=== PATIENT | female | born 1990 | race Caucasian/White ===

== ENCOUNTER → 2016-10-22 | Outpatient (CLI) | payer BC ==
[2016-10-22 18:54] LABS: BASO % 0.5 %; BASO ABS # 0.04 K/uL (0-0.2); COMPLETE YES; EOS % 1.7 %; HEMATOCRIT 38.1 % (37-47); IG% 0.1 %; LYMPH % 43.1 %; LYMPH ABS # 3.21 K/uL (1.2-3.4); MEAN CELL VOLUME 89.9 fL (80-100); MEAN CORPUSCULAR HEMOGLOBIN 30.2 pg (25-34); MEAN CORPUSCULAR HGB CONC 33.6 g/dl (32-36); MONO % 8.2 %; NEUT % 46.4 %; PLATELET COUNT 315 K/uL (130-400); RED BLOOD COUNT 4.24 M/uL (4.2-5.4); WHITE BLOOD COUNT 7.44 K/uL (4.8-10.8)
== END | disposition home or self-care (01) ==
LOC: C.LABMFLN 11:38
PROVIDERS: ATTEND Family Medicine
DX: D72.829 Elevated white blood cell count, unspecified (principal)

== ENCOUNTER → 2017-07-24 | Outpatient (CLI) | payer OTHER | END | disposition home or self-care (01) | LOC: C.PAPS 13:50 | PROVIDERS: ATTEND Physician Assistant | DX: Z12.4 Encounter for screening for malignant neoplasm of cervix (principal) ==

== ENCOUNTER 2023-01-11 02:11 | Inpatient (IN) ==
[2023-01-11] MEDS ORDERED: OXYTOCIN 30 UNITS/500 ML BAG IV PRN ×3 (03:13→16:06)
[2023-01-11] MEDS ORDERED: LIDOCAINE 1% LOCAL 20 ML VIAL INFIL PRN (03:13)
[2023-01-11 03:58] LABS: Hematocrit (blood only) 38.8 % (37.0-47.0); Hemoglobin 13.5 g/dl (12.0-16.0); Mean Corpuscular Hgb Conc 34.8 g/dL (32.0-36.0); Mean Corpuscular Volume 91.9 fL (80.0-100.0); Mean Platelet Volume 10.8 fL (9.4-12.4); Platelet Count 241 K/uL (130-400); RDW Coefficient of Variation 11.9 % (11.5-14.5); RDW Standard Deviation 39.6 fL (36.4-46.3); Red Blood Count 4.22 M/uL (4.20-5.40); White Blood Count 9.89 K/ul (4.8-10.8)
--- NOTE | 2023-01-11 06:22 | Labor Progress Brief Note ---
Date of Service January 11, 2023 Subjective Admitted with SROM and onset of labor just starting as she arrived at hospital a few hours ago. Much more painful with contractions, now requesting epidural. Assessment & Plan (1) Normal labor: Plan: SROM, now labor, requesting epidural. Admission and Anticipated Discharge Date Admission Date: January 11, 2023 Physical Exam Genitourinary: Per OPAL Saxena: Exam has changed from 1cm on admission to 2/90% now. LOF clear. Amnisure was positive on arrival. FHT Cat 1 [place] Q2-5 irreg Results & Data Vital Signs (Past 12 Hours) Vital Signs Temp Pulse Resp BP 01/11/23 03:50 98.6 F 88 20 135/68 Coding Level of Care Code None Diagnoses Normal labor O80; Z37.9
[2023-01-11] MEDS: LACTATED RINGER'S 1,000 ML IV PRN ×3 (06:41→15:55)
[2023-01-11] MEDS ORDERED: fentaNYL citrate PF 100 MCG/2 ML VIAL ONE (07:06)
[2023-01-11] MEDS ORDERED: ePHEDrine sulfate 50 MG/ML AMP ONE (07:06)
[2023-01-11] MEDS ORDERED: BUPIVACAINE 0.25% PF 30 ML VIAL ONE (07:06)
[2023-01-11] MEDS ORDERED: SODIUM CHLORIDE 0.9% PF INJ 10 ML VIAL ONE (07:06)
[2023-01-11] MEDS ORDERED: LIDOCAINE 2%/EPINEPHRINE 1:200,000 20 ML PF ONE (07:06)
[2023-01-11] MEDS ORDERED: fentaNYL 2MCG/ML ROPIVACAINE 1.25MG/ML 100 ML BAG EPI ONE (07:07)
--- NOTE | 2023-01-11 07:23 | Anesthesiology Consultation ---
Date of Service January 11, 2023 Assessment & Plan Chart Review Chart Review: Acceptable Risk for Surgery and Patient NOT seen in Pre Admission Testing Consults Requested none ASA ASA2 Proposed Anesthesia Anesthesia Type: Labor Epidural and CSE History Height/Weight Height: 5 ft 5 in Weight: 86.046 kg Allergies Allergy/AdvReac Type Severity Reaction Status Date / Time No Known Drug Allergies Allergy Verified 01/08/23 15:55 Medications Home Medications Medication Instructions Recorded Confirmed Last Taken albuterol sulfate 90 mcg/actuation 2 inhalation .INHALE 2 PUFFS Every 10/24/19 01/08/23 Unknown aerosol inhaler 4 hours PRN prenat.vits,bg,yay-[id number]-[id number] 1 tab PO DAILY 11/08/21 01/08/23 Unknown Active Medications Generic Name Dose Route Start Last Admin Trade Name Freq PRN Reason Stop Dose Admin Lactated Ringer's 1,000 mls @ 125 mls/hr 01/11/23 03:13 01/11/23 06:41 Lr IV 01/13/23 03:12 999 mls/hr .Q8H PRN Administration L&D Protocol Protocol Past Medical History Medical History Adjustment disorder with depressed mood Chlamydia trachomatis infection PCOS (polycystic ovarian syndrome) Exercise / Class Metabolic Activity II 4-5 Yardwork/Stairs/Walk up hill Past Family History Family History Father Hypertension Dyslipidemia Mother Hypothyroidism Grandfather (Maternal) Colorectal cancer Other Ovarian cancer Denies family history of Breast cancer Past Surgical History Surgical History H/O oral surgery S/P tonsillectomy Past Anesthesia History No Hx of Anesthesia Complications and No Family Hx of Anesthesia Complications History of PONV No Hx of PONV and No Hx of Motion Sickness Social History Smoking Status: Never smoker Hx Alcohol Use: No Hx Substance Use: No Physical Exam Vital Signs Last Vital Signs Temp 37.0 C 01/11/23 03:50 Pulse 99 H 01/11/23 07:20 Resp 20 01/11/23 03:50 BP 137/79 01/11/23 07:15 Pulse Ox 100 01/11/23 07:20 Testing Laboratory Results 01/11/23 03:40
[2023-01-11] MEDS ORDERED: NALOXONE HCL 0.4 MG/1 ML VIAL/CARP IV PRN (08:07)
[2023-01-11] MEDS ORDERED: ONDANSETRON INJ 2 MG/ML 2 ML VIAL IV PRN (08:07)
[2023-01-11] MEDS ORDERED: PROMETHAZINE HCL 25 MG in SODIUM CHLORIDE 0.9% 50 ML IV PRN (08:07)
[2023-01-11] MEDS ORDERED: NALBUPHINE HCL INJ 10 MG/ML AMP IV PRN (08:07)
[2023-01-11] MEDS ORDERED: NALOXONE HCL 1 MG in SODIUM CHLORIDE 0.9% 1000ML 1,000 ML IV PRN (08:07)
[2023-01-11] MEDS ORDERED: fentaNYL 2MCG/ML ROPIVACAINE 1.25MG/ML 100 ML BAG EPI PRN (08:07)
[2023-01-11] MEDS ORDERED: diphenhydrAMINE 50 MG/ML VIAL IV PRN (08:07)
[2023-01-11] MEDS ORDERED: ePHEDrine sulfate 50 MG/ML AMP IV PRN (08:07)
--- NOTE | 2023-01-11 08:57 | Labor Progress Brief Note ---
Date of Service January 11, 2023 Subjective comfortable w/ epidural Assessment & Plan (1) Normal labor: Plan: 32 yo G1 at 40 2/7 wga admitted w/ srom/labor VSS Fetus cat 2 after epidural but reassuring Labor - ctx seem to have spaced out a little, SVE minimal change. Discussed pit and pt amenable GBS neg epidural in place Admission and Anticipated Discharge Date Admission Date: January 11, 2023 Physical Exam Genitourinary: Manual OB Exam: + cervical dilation (2-3), + cervical effacement 70% and + station -2 OB Exam Monitor Tracing: + external FHT monitor used (q5-7), + external uterine monitor used and + category II (130/mod/+accel/intermit early/variables after epidural) Results & Data Vital Signs (Past 12 Hours) Vital Signs Temp Pulse Resp BP Pulse Ox 01/11/23 08:50 100 01/11/23 08:50 75 01/11/23 08:51 90 92 01/11/23 08:50 85 112/58 L 01/11/23 08:45 71 96 01/11/23 08:40 90 99 01/11/23 08:36 75 112/53 L 01/11/23 08:35 79 98 01/11/23 08:30 81 99 01/11/23 08:25 76 97 01/11/23 08:20 78 98 01/11/23 08:19 81 110/51 L 01/11/23 08:15 82 98 01/11/23 08:11 81 101/56 L 01/11/23 08:10 86 99 01/11/23 08:09 83 104/54 L 01/11/23 08:07 77 110/56 L 01/11/23 08:05 94 H 114/56 L 99 01/11/23 08:03 81 107/51 L 01/11/23 08:02 78 112/55 L 01/11/23 08:00 87 100 01/11/23 07:55 87 99 01/11/23 07:50 97 H 99 01/11/23 07:45 97 H 99 01/11/23 07:40 93 H 100 01/11/23 07:35 99 H 99 01/11/23 07:30 101 H 100 01/11/23 07:16 20 01/11/23 07:16 98.2 F 20 01/11/23 07:25 90 99 01/11/23 07:20 99 H 100 01/11/23 07:15 100 01/11/23 07:15 93 H 01/11/23 07:15 90 137/79 01/11/23 03:50 98.6 F 88 20 135/68 Coding Level of Care Code None Diagnoses Normal labor O80; Z37.9
[2023-01-11] MEDS ORDERED: ceFAZolin 2000MG 2,000 MG/15 ML SYR IV STA (15:56)
--- NOTE | 2023-01-11 16:02 | Delivery Summary ---
Vaginal Delivery Summary Date of Service January 11, 2023 Vaginal Delivery Summary and 2nd Degree LAC PREOPERATIVE DIAGNOSIS: 1. Single intrauterine at 40 2/7 wga 2. SROM 3. Labor POSTOPERATIVE DIAGNOSIS: 1. Single intrauterine at 40 2/7 wga 2. SROM 3. Labor 4. Delivered PROCEDURE: 1. Normal spontaneous vaginal delivery. 2. Manual extraction of placenta SURGEON: Sandra Woods MD ANESTHESIA: Epidural. ESTIMATED BLOOD LOSS: 300 mL FLUIDS: Continuous LR. URINE OUTPUT: None. COMPLICATIONS: None. CONDITION: Stable. INDICATIONS: 32 yo G1 at 40 2/7 wga presented early this morning with SROM and contractions. She received an epidural for pain control. Cervix was noted to not have progressed significantly following epidural so pitocin was initiated. She then progressed to complete and desired to push. FINDINGS: A viable male infant, weight pending with Apgars of 9 and 9 at 1 and 5 minutes respectively. SPECIMEN: Cord blood, placenta OPERATIVE REPORT: The patient progressed to 10 cm, 100% effaced and +2 station, pushed over intact perineum with anesthesia to deliver a viable male infant, weight and Apgars as above. Head of delivered in MARY LOU position. No nuchal cord was present but hand was noted to be compound presentation. Body and shoulders were delivered without difficulty. was delivered to maternal abdomen and nursing staff. Delayed cord clamping was performed for 60 seconds. Cord was clamped and cut. Cord blood was obtained. Gentle traction was placed on placenta however cord easily avulsed and so manual extraction was performed and placenta was removed intact. Additional sweep of the uterus did not identify retained products. Inspection of placenta revealed it to appear intact. IV oxytocin and fundal massage were given for excellent hemostasis. Vagina, cervix, and perineum, were inspected. A second degree laceration was noted and repaired using 3-0 vicryl in the usual fashion. Bilateral labial abrasions were noted but hemostatic so not needed to be repaired. Ancef was ordered x 24 hrs due to manual extraction. Sponge and needle counts correct x2. No sponges were left behind. Mother and stable in immediate period. [facility] [place] Vaginal Delivery Charge Vaginal Delivery Codes: 31121 global code for the antepartum, delivery, and post- Delivery Type Details: and 2nd Degree LAC
[2023-01-11] MEDS ORDERED: HYDROCORTISONE ACETATE 25 MG SUPP PR PRN (16:06)
[2023-01-11] MEDS ORDERED: ACETAMINOPHEN 325 MG TAB PO PRN (16:06)
[2023-01-11] MEDS ORDERED: DIPHTHERIA/TETANUS/PERTUSSIS 0.5mL SYR/VIAL (Age 7+yrs) IM ONE (16:06)
[2023-01-11] MEDS ORDERED: BENZOCAINE 20% AER SPR 82.5 GM CAN EXT PRN (16:06)
[2023-01-11] MEDS ORDERED: bisacodyL 10 MG SUPP PR PRN (16:06)
[2023-01-11] MEDS ORDERED: MEASLES, MUMPS & RUBELLA VIRUS VIAL SQ ONE (16:06)
--- NOTE | 2023-01-11 16:56 | Anesthesia Procedure Note ---
Date of Service January 11, 2023 Anesthesia Post Epidural Note Vital Signs Vital Signs: Temp Pulse Resp BP Pulse Ox 36.9 C 123 H 20 116/79 100 01/11/23 15:05 01/11/23 16:34 01/11/23 15:05 01/11/23 16:49 01/11/23 15:50 Notes Mental Status: alert / awake / arousable Nausea / Vomiting: adequately controlled Pain: adequately controlled Airway Patency, RR, SpO2: stable & adequate BP & HR: stable & adequate Hydration State: stable & adequate Neuraxial Anesthesia: was administered and sensory block is resolving Anesthetic Complications: no major complications apparent Epidural: Removed without complications and With tip intact
[2023-01-11] MEDS: IBUPROFEN 600 MG TAB PO PRN ×2 (17:14→21:01)
[2023-01-11] MEDS: DOCUSATE SODIUM 100 MG CAP PO SCH (21:01)
[2023-01-12] MEDS: ceFAZolin 2000MG 2,000 MG/15 ML SYR IV SCH ×2 (00:06→08:31)
[2023-01-12] MEDS: IBUPROFEN 600 MG TAB PO PRN ×4 (02:35→19:40)
--- NOTE | 2023-01-12 06:59 | Obstetrical Progress Note ---
Date of Service January 12, 2023 Assessment & Plan (1) Encounter for care and examination after delivery: 32 yo PP1 from , doing well -Meeting all pp milestones -A+/rubella equiv/, mmr ordered -f/u 6 weeks for appt, continue routine pp care. Ancef ordered x 24 hrs for manual extraction Subjective Ambulation: ambulating normally Voiding: no voiding problems Passing Gas:: Yes Diet Tolerance:: regular diet Lochia:: Moderate Feeding Type:: breast feeding Pain well managed with medication Review of Systems Denies fevers, chills, n/v, BORJA, CP, SOB Physical Exam Constitutional WD/WN, vitals as above no acute distress Respiratory normal respiratory effort, lungs clear to auscultation Cardiovascular RRR, no murmur, no edema Gastrointestinal (Abdomen) Percussion/Palpation: abdomen soft; abdomen nontender fundus firm at umbilicus and NT Musculoskeletal BLE symmetric, nonerythematous, nontender Results & Data Vital Signs (Past 12 Hours) Vital Signs Temp Pulse Resp BP Pulse Ox O2 Del Method 01/12/23 02:36 97.9 F 80 18 113/75 97 Room Air 01/11/23 22:59 97.7 F 85 18 109/71 97 Room Air
[2023-01-12] MEDS: DOCUSATE SODIUM 100 MG CAP PO SCH ×2 (08:31→19:40)
[2023-01-12] MEDS: FERROUS SULFATE 325 MG TAB PO SCH (08:31)
[2023-01-12] MEDS: PRENATAL VITAMIN 1 TAB PO SCH (08:31)
[2023-01-12] MEDS ORDERED: bisacodyL 5 MG TABEC PO SCH (20:00)
[2023-01-13] MEDS: IBUPROFEN 600 MG TAB PO PRN ×2 (05:19→09:15)
--- NOTE | 2023-01-13 05:43 | Obstetrical Progress Note ---
Date of Service January 13, 2023 Assessment & Plan (1) Encounter for care and examination after delivery: Plan: Winter is a 32 y/o female who is PPD #2 following delivery at 40 2/7 weeks -Meeting all milestones -Vitals checked and WNL, Hemoglobin stable -A+/GBS negative/Rubella equivocal -Follow up in 6 weeks for appointment -Continue routine care -Plan for d/c today (2) Normal labor: (3) Supervision of normal intrauterine in primigravida: Admission and Anticipated Discharge Date Admission Date: January 11, 2023 Supervising Physician Co-Signing Physician Notes Resident Physician Supervision Note: I interviewed and examined the patient. Discussed with Dr. Bradshaw and agree with findings and plan as documented in the note. Any exceptions or clarifications are listed here: PP2 s/p , doing well. VSS, exam benign and wnl. Stable for d/c home today Documented By: Sandra Woods MD Subjective Winter is a 32 y/o female who is PPD #2 following delivery at 40 2/7 weeks. She reports feeling well overall this morning. Notes abdominal cramping but pain well managed on analgesics. Voiding without issue. Tolerating meals overnight and able to ambulate some. Has some persistent lochia with some improvement this morning. Currently breast feeding. Review of Systems Constitutional: no fever, no chills and no sweats Respiratory: no cough, no dyspnea and no wheezing Cardiovascular: no chest pain, no palpitations and no calf pain Genitourinary: no dysuria Neurologic: no headache(s) Physical Exam Constitutional: WD/WN, vitals as above no acute distress Respiratory: no respiratory distress Auscultation: lungs clear to auscultation bilaterally; no rales, no rhonchi and no wheezes Cardiovascular: RRR, no murmur, no edema Extremities: no calf tenderness and no edema Negative Rowan's sign bilaterally. Gastrointestinal (Abdomen): Inspection/Auscultation: normal bowel sounds Genitourinary: Uterine fundus firm, palpable below the umbilicus. Results & Data Vital Signs (Past 12 Hours) Vital Signs Temp Pulse Resp BP Pulse Ox O2 Del Method 01/12/23 23:00 36.6 C 74 18 108/57 L 97 Room Air 01/12/23 19:30 36.7 C 87 18 109/65 99 Room Air Resident Activity Tracking Resident Involvement: Resident Care Provided Care Provided: OB Delivery
[2023-01-13] MEDS: FERROUS SULFATE 325 MG TAB PO SCH (08:33)
[2023-01-13] MEDS: DOCUSATE SODIUM 100 MG CAP PO SCH (08:33)
[2023-01-13] MEDS: PRENATAL VITAMIN 1 TAB PO SCH (08:33)
== END 2023-01-13 14:49 | disposition home or self-care (01) | DRG 807 ==
LOC: OPB 02:11 → 4S1 02:13 → 4E2 18:45

== ENCOUNTER 2024-11-28 21:06 | Inpatient (IN) ==
[2024-11-29] MEDS: LACTATED RINGER'S 1,000 ML IV PRN (00:45)
[2024-11-29] MEDS ORDERED: LIDOCAINE 1% LOCAL 20 ML VIAL INFIL PRN (00:46)
[2024-11-29] MEDS ORDERED: ePHEDrine sulfate 50 MG/ML AMP ONE (01:16)
[2024-11-29] MEDS ORDERED: ROPIVACAINE 0.5% PF 5 MG/ML 20 ML VIAL EPI PRN (01:29)
[2024-11-29] MEDS ORDERED: diphenhydrAMINE 50 MG/ML VIAL IV PRN (01:29)
[2024-11-29] MEDS ORDERED: BUPIVACAINE 0.25% PF 30 ML VIAL EPI PRN (01:29)
[2024-11-29] MEDS ORDERED: NALOXONE HCL 0.4 MG/1 ML VIAL/CARP IV PRN (01:29)
[2024-11-29] MEDS ORDERED: NALOXONE HCL 1 MG in SODIUM CHLORIDE 0.9% 1,000 ML IV PRN (01:29)
[2024-11-29] MEDS ORDERED: fentANYL 2 MCG/ML BUPIVacaine 0.125%-NSS 100ML BAG EPI PRN (01:29)
[2024-11-29] MEDS ORDERED: LIDOCAINE 2% MPF LOCAL 5 ML VIAL EPI PRN (01:29)
[2024-11-29] MEDS ORDERED: ePHEDrine sulfate 50 MG/ML AMP IV PRN (01:29)
[2024-11-29] MEDS ORDERED: NALBUPHINE HCL INJ 10 MG/ML AMP IV PRN (01:29)
[2024-11-29] MEDS ORDERED: fentaNYL citrate PF 100 MCG/2 ML VIAL EPI PRN (01:29)
[2024-11-29] MEDS ORDERED: ONDANSETRON INJ 2 MG/ML 2 ML VIAL IV PRN (01:29)
[2024-11-29] MEDS ORDERED: SODIUM CHLORIDE 0.9% PF INJ 10 ML VIAL EPI PRN (01:29)
[2024-11-29 01:30] LABS: Hematocrit (blood only) 36.1 % (37.0-47.0); Hemoglobin 12.2 g/dl (12.0-16.0); Mean Corpuscular Hemoglobin 30.8 pg (25.0-34.0); Mean Corpuscular Hgb Conc 33.8 g/dL (32.0-36.0); Mean Corpuscular Volume 91.2 fL (80.0-100.0); Mean Platelet Volume 10.5 fL (9.4-12.4); Platelet Count 238 K/uL (130-400); RDW Coefficient of Variation 12.2 % (11.5-14.5); RDW Standard Deviation 40.4 fL (36.4-46.3); Red Blood Count 3.96 M/uL (4.20-5.40); White Blood Count 10.99 K/ul (4.8-10.8)
--- NOTE | 2024-11-29 01:32 | Anesthesiology Consultation ---
Date of Service November 29, 2024 Assessment & Plan (1) Encounter for pre-operative examination: Chart Review Chart Review: Patient NOT seen in Pre Admission Testing and Acceptable Risk for Labor Epidural Consults Requested none History Height/Weight Height: 5 ft 5 in Weight: 85.729 kg Allergies Allergy/AdvReac Type Severity Reaction Status Date / Time No Known Drug Allergies Allergy Verified 11/24/24 14:51 Medications Home Medications Medication Instructions Recorded Confirmed Last Taken albuterol sulfate 90 mcg/actuation 2 inhalation .INHALE 2 PUFFS Every 10/24/19 11/24/24 Unknown aerosol inhaler 4 hours PRN prenat.vits,bg,ede-gobb-bfxcp 1 tab PO DAILY 11/08/21 11/24/24 11/27/24 21:00 acetaminophen 325 mg tablet 650 mg PO Q6H PRN Pain, Mild 11/28/24 Unknown Active Medications Generic Name Dose Route Start Last Admin Trade Name Freq PRN Reason Stop Dose Admin Lactated Ringer's 1,000 mls @ 125 mls/hr 11/29/24 00:46 11/29/24 01:20 Lr IV 11/30/24 00:45 125 mls/hr .Q8H PRN Infusion L&D Protocol Protocol Past Medical History Medical History (Updated 11/29/24 @ 01:32 by Daniel Nuno MD) Encounter for pre-operative examination History of chicken pox Asthma Allergic rhinitis History of abnormal cervical Pap smear 2016, (-) colpo Dysmenorrhea Adjustment disorder with depressed mood PCOS (polycystic ovarian syndrome) Chlamydia trachomatis infection Exercise / Class Metabolic Activity II 4-5 Yardwork/Stairs/Walk up hill Past Family History Family History Father Hypertension Dyslipidemia Dementia Mother Hypothyroidism Grandfather (Maternal) Colorectal cancer Other Ovarian cancer Denies family history of Breast cancer Past Surgical History Surgical History S/P tonsillectomy H/O oral surgery Past Anesthesia History No Hx of Anesthesia Complications and No Family Hx of Anesthesia Complications Social History Smoking Status: Never smoker Do You Dip or Chew Tobacco: No Hx Alcohol Use: No Hx Substance Use: No Physical Exam Vital Signs Last Vital Signs Temp 36.8 C 11/28/24 21:45 Pulse 82 11/29/24 01:45 Resp 16 11/28/24 21:45 BP 134/74 11/29/24 01:36 Pulse Ox 99 11/29/24 01:45 Testing Laboratory Results 11/29/24 01:06
[2024-11-29] MEDS: SODIUM CHLORIDE 0.9% PF INJ 10 ML VIAL EPI STA (01:52)
[2024-11-29] MEDS: BUPIVACAINE 0.25% PF 30 ML VIAL EPI STA (01:52)
[2024-11-29] MEDS: BUPIVACAINE 0.25% PF 30 ML VIAL ONE (01:52)
[2024-11-29] MEDS: LIDOCAINE 2%/EPINEPHRINE 1:200,000 20 ML PF ONE (01:52)
[2024-11-29] MEDS: fentaNYL citrate PF 100 MCG/2 ML VIAL ONE (01:52)
[2024-11-29] MEDS: fentaNYL citrate PF 100 MCG/2 ML VIAL EPI STA (01:52)
[2024-11-29] MEDS: LIDOCAINE 2%/EPINEPHRINE 1:200,000 20 ML PF EPI STA (01:52)
[2024-11-29] MEDS: SODIUM CHLORIDE 0.9% PF INJ 10 ML VIAL ONE (01:52)
[2024-11-29] MEDS: fentANYL 2 MCG/ML BUPIVacaine 0.125%-NSS 100ML BAG ONE (01:53)
--- NOTE | 2024-11-29 07:48 | History & Physical Report ---
Date of Service November 29, 2024 Assessment & Plan (1) Encounter for supervision of normal in multigravida: Plan: Flor is a 34-year-old G2, P1 currently at 39 weeks 5 days gestational age presents in labor. Category 1 tracing. Laboring spontaneously and will augment as needed.GBS negative. Vitals within normal limits (2) Normal labor: Admission and Anticipated Discharge Date Admission Date: November 29, 2024 History of Present Illness Primary Care Provider: Ilan Kennedy Flor is a 34-year-old G2, P1 currently at 39 weeks 5 days gestational age presents in labor. has been uncomplicated to date. OB Labs: Blood Type A Positive 05/05/24 Antibody Screen NEGATIVE 05/05/24 Hgb 11.8 g/dl (12.0-16.0) L 09/09/24 Hct 35.4 % (37.0-47.0) L 09/09/24 MCV 86.7 fL (80.0-100.0) 05/05/24 Plt Count 294 K/uL (130-400) 05/05/24 Rubella IgG Antibody Immune (Immune) 05/05/24 RPR Nonreactive (Nonreactive) 06/05/22 Treponema pallidum Ab Negative (Negative) 09/09/24 Hep Bs Antigen Negative (Negative) 05/05/24 Hep Bs Antigen NON-REACTIVE (NON-REACTIVE) 06/05/22 Hepatitis C Antibody Negative (Negative) 05/05/24 Hepatitis C Ab (EIA) NON-REACTIVE (NON-REACTIVE) 06/05/22 HIV 1&2 Ab/P24 Ag 4thGn Negative (Negative) 05/05/24 HIV (1&2) Ag & Ab Conf NON-REACTIVE (NON-REACTIVE) 06/05/22 Glucose 1 Hr 50 gm 95 mg/dl (70-130) 09/09/24 Maternal Serum AFP 56.4 ng/mL 07/24/22 OB Optional Labs: Chlamydia trachomatis RNA Not Detected (NotDetected) 05/05/24 Neisseria gonorrhoeae RNA Not Detected (NotDetected) 05/05/24 Thyroid Stimulating Hormone (TSH) 1.714 uIu/ml (0.300-4.500) 11/08/21 Alpha Fetoprotein Triple Screen SEE NOTE 07/24/22 Labs Reviewed: cf/sma-negative G1 - sln horizon 14-negative--mln Allergies Allergy/AdvReac Type Severity Reaction Status Date / Time No Known Drug Allergies Allergy Verified 11/24/24 14:51 Home Medications Medication Instructions Recorded Confirmed Type albuterol sulfate 90 mcg/actuation 2 inhalation .INHALE 2 PUFFS Every 10/24/19 11/24/24 History aerosol inhaler 4 hours PRN prenat.vits,bg,bjp-mwjd-dzgeg 1 tab PO DAILY 11/08/21 11/24/24 History acetaminophen 325 mg tablet 650 mg PO Q6H PRN Pain, Mild 11/28/24 History Patient History Medical History (Updated 11/29/24 @ 07:47 by Baldemar Palacios MD) Encounter for pre-operative examination History of chicken pox Asthma Allergic rhinitis History of abnormal cervical Pap smear 2016, (-) colpo Dysmenorrhea Adjustment disorder with depressed mood PCOS (polycystic ovarian syndrome) Chlamydia trachomatis infection Surgical History S/P tonsillectomy H/O oral surgery Family History Father Hypertension Dyslipidemia Dementia Mother Hypothyroidism Grandfather (Maternal) Colorectal cancer Other Ovarian cancer Denies family history of Breast cancer Social History Smoking Status: Never smoker Do You Dip or Chew Tobacco: No; Hx Alcohol Use: No Hx Substance Use: No Preferred Language: Arabic Communication Ability: Effective Pathology Laboratory Director Required: No Beliefs That Will Affect Care: None marital status: marital status details: Aguilar Gavin (36) [phone] Current Living Situation: Spouse and Family Current Living Situation Comment: lives with spouse, child, no pets. current occupational status: employed current occupation: High school teacher asst Other Information That Helps Us Care for You: No Feels Safe at Home: Yes Safety Concerns: Feels Safe At This Time Assistive Devices: None Physical Exam Genitourinary: OB Exam Monitor Tracing: + external FHT monitor used, + external uterine monitor used, + category I and + normal FHT variability Progressed from 2 cm to 4 cm per nurse exam. Results & Data Vital Signs (Past 12 Hours) Vital Signs Temp Pulse Resp BP Pulse Ox 11/29/24 07:40 83 100 11/29/24 07:37 84 124/63 11/29/24 07:35 87 100 11/29/24 07:30 81 100 11/29/24 07:26 84 92 11/29/24 07:25 77 100 11/29/24 07:22 73 121/67 11/29/24 07:20 78 100 11/29/24 07:15 79 99 11/29/24 07:10 79 100 11/29/24 07:08 86 125/83 11/29/24 07:05 82 99 11/29/24 07:00 36.5 C 80 18 100 11/29/24 07:00 76 100 11/29/24 06:59 16 11/29/24 06:59 36.5 C 16 11/29/24 06:55 81 100 11/29/24 06:51 70 110/59 L 11/29/24 06:50 68 97 11/29/24 06:45 63 97 11/29/24 06:40 66 97 11/29/24 06:36 69 114/60 11/29/24 06:35 68 98 11/29/24 06:30 83 100 11/29/24 06:25 73 98 11/29/24 06:22 85 129/68 11/29/24 06:20 77 100 11/29/24 06:15 71 97 11/29/24 06:10 74 97 11/29/24 06:07 71 105/58 L 11/29/24 06:05 73 97 11/29/24 06:00 72 98 11/29/24 05:55 72 98 11/29/24 05:51 75 97/64 L 11/29/24 05:50 75 100 11/29/24 05:45 79 98 11/29/24 05:40 75 99 11/29/24 05:36 74 98/57 L 11/29/24 05:35 76 98 11/29/24 05:30 75 100 11/29/24 05:25 73 99 11/29/24 05:24 71 100/58 L 11/29/24 05:21 36.6 C 11/29/24 05:20 80 97 11/29/24 05:15 84 98 11/29/24 05:10 87 100 11/29/24 05:06 75 106/55 L 11/29/24 05:05 76 96 11/29/24 05:00 70 97 11/29/24 04:55 69 97 11/29/24 04:51 70 107/57 L 11/29/24 04:50 66 97 11/29/24 04:45 68 97 11/29/24 04:40 69 97 11/29/24 04:38 67 106/65 11/29/24 04:35 64 97 11/29/24 04:30 66 97 11/29/24 04:25 65 97 11/29/24 04:23 69 106/60 11/29/24 04:20 74 100 11/29/24 04:15 73 96 11/29/24 04:10 68 99 11/29/24 04:08 73 107/62 11/29/24 04:05 68 96 11/29/24 04:00 69 96 11/29/24 03:55 76 97 11/29/24 03:50 88 100 11/29/24 03:45 67 97 11/29/24 03:40 70 96 11/29/24 03:37 69 105/58 L 11/29/24 03:35 67 97 11/29/24 03:30 67 97 11/29/24 03:25 68 97 11/29/24 03:22 65 105/61 11/29/24 03:21 86 94 11/29/24 03:20 74 95 11/29/24 03:15 69 97 11/29/24 03:10 73 97 11/29/24 03:08 74 122/65 11/29/24 03:05 79 97 11/29/24 03:00 79 96 11/29/24 02:55 80 99 11/29/24 02:53 78 117/65 11/29/24 02:50 78 97 11/29/24 02:45 78 98 11/29/24 02:40 73 96 11/29/24 02:36 91 H 106/55 L 11/29/24 02:35 81 99 11/29/24 02:30 81 97 11/29/24 02:25 83 99 11/29/24 02:22 75 112/57 L 11/29/24 02:20 75 97 11/29/24 02:15 71 98 11/29/24 02:11 36.4 C L 11/29/24 02:10 73 97 11/29/24 02:05 71 112/59 L 98 11/29/24 02:03 69 115/62 11/29/24 02:01 72 114/64 11/29/24 02:00 69 97 11/29/24 01:59 73 115/57 L 11/29/24 01:57 76 112/55 L 11/29/24 01:55 98 11/29/24 01:55 72 11/29/24 01:55 72 106/57 L 11/29/24 01:53 76 116/61 11/29/24 01:51 76 121/68 11/29/24 01:50 78 100 11/29/24 01:45 82 99 11/29/24 01:40 85 98 11/29/24 01:36 86 134/74 11/29/24 01:35 87 99 11/29/24 01:30 95 H 100 11/29/24 01:25 82 99 11/28/24 21:45 36.8 C 16 11/28/24 21:18 70 129/70 Coding Level of Care Code None Diagnoses Encounter for supervision of normal in multigravida Z34.80 Normal labor O80; Z37.9
[2024-11-29] MEDS: OXYTOCIN 30 UNITS/NSS 30 UNITS/500 ML BAG IV PRN (08:03)
--- NOTE | 2024-11-29 08:14 | Delivery Summary ---
Vaginal Delivery Summary Date of Service November 29, 2024 Vaginal Delivery Summary DIAGNOSES: 1. Simeon intrauterine at 39w5d gestation. 2. Spontaneous onset of labor. 3. Group B Streptococcus Neg. PROCEDURE: Spontaneous vaginal delivery and repair of first degree laceration. SURGEON: Milli Evans MD. ZIPPER REPAIRER: None. ESTIMATED BLOOD LOSS: mL. COMPLICATIONS: None. PLACENTA: Spontaneous and intact with a 3-vessel cord. DISPOSITION: Stable to labor and delivery. DESCRIPTION: The patient pushed well and brought the head to in MARY LOU position. The infant's head was allowed to deliver with contraction force and no further active pushing, with the perineum protected during this time. There was 1 loop of nuchal cord reduced at the perineum. The shoulders and body delivered without any difficulty, and the infant was placed on the maternal abdomen. It was vigorous and moving all extremities, and making respiratory efforts. The cord was doubly clamped by the MD and then cut by the FOB. The placenta delivered spontaneously and was noted to be intact and with a 3VC. The cervix, vagina and perineum were examined and were found to have a first degree perineal laceration repaired with vicryl suture. The fundus was firm and lochia minimal immediately after delivery. [facility] Vaginal Delivery Charge Vaginal Delivery Codes: 81148 global code for the antepartum, delivery, and post-
[2024-11-29] MEDS: IBUPROFEN 600 MG TAB PO ONE ×2 (08:34→12:54)
--- NOTE | 2024-11-29 08:55 | Anesthesia Procedure Note ---
Date of Service November 29, 2024 Anesthesia Post Epidural Note Vital Signs Vital Signs: Temp Pulse Resp BP Pulse Ox 97.7 F 83 18 114/64 97 11/29/24 07:00 11/29/24 08:52 11/29/24 07:00 11/29/24 08:52 11/29/24 08:20 Pain Intensity Abdomen: Pain Intensity: 4 Notes Mental Status: alert / awake / arousable and participated in evaluation Nausea / Vomiting: adequately controlled Pain: adequately controlled Airway Patency, RR, SpO2: stable & adequate BP & HR: stable & adequate Hydration State: stable & adequate Neuraxial Anesthesia: was administered and sensory block is resolving Anesthetic Complications: no major complications apparent and Pt Satisfied with anesthetic care Epidural: Removed without complications and With tip intact
[2024-11-29] MEDS ORDERED: OXYTOCIN 30 UNITS/500ML NSS IV ONE (09:28)
[2024-11-29] MEDS ORDERED: HYDROCORTISONE ACETATE 25 MG SUPP PR PRN (14:12)
[2024-11-29] MEDS ORDERED: OXYTOCIN 30 UNITS/NSS 30 UNITS/500 ML BAG IV PRN (14:12)
[2024-11-29] MEDS ORDERED: bisacodyL 10 MG SUPP PR PRN (14:12)
[2024-11-29] MEDS: IBUPROFEN 600 MG TAB PO PRN (17:08)
[2024-11-29] MEDS: DOCUSATE SODIUM 100 MG CAP PO SCH (21:04)
[2024-11-29] MEDS: ACETAMINOPHEN 325 MG TAB PO PRN (21:04)
[2024-11-29] MEDS: BENZOCAINE 20% SPRY 85 APPLN/85 GM CAN EXT PRN (21:08)
[2024-11-30 03:44] VITALS: RESP 18; TEMP 97.9; O2SAT 98
--- NOTE | 2024-11-30 06:06 | Obstetrical Progress Note ---
Date of Service <Joshua Guerra MD - Last Filed: 11/30/24 07:00> November 30, 2024 Assessment & Plan <Joshua Guerra MD - Last Filed: 11/30/24 07:00> (1) care and examination: PPD#1 s/p at 39 wga: Stable. Rh+, gbs neg, ri, vitals wnl, AM labs still pending Continue routine care, ambulation, diet as tolerated Plan for DC today <Milli Evans MD - Last Filed: 11/30/24 07:06> (1) care and examination: Subjective <Joshua Guerra MD - Last Filed: 11/30/24 07:00> Patient is a 34yo who is PPD#1 following at 39 weeks. Abd pain/cramping - 10/15, well managed on analgesics Voiding w/o issue Tolerating meals Ambulating normally +passing gas, no BM yet Lochia minimal, diminishing Planning to breastfeed Constitutional: no fever, no chills or no sweats Respiratory: no dyspnea Cardiovascular: no chest pain, no palpitations or no calf pain Breast: no breast pain Gastrointestinal: no nausea or no vomiting Genitourinary (female): no dysuria Neurologic: no headache(s) no changes in vision, no headaches Physical Exam <Joshua Guerra MD - Last Filed: 11/30/24 07:00> General: Alert, oriented. No acute distress. Cardiac: Regular rate and rhythm, no murmurs, rubs, or gallops. Respiratory: Clear to auscultation bilaterally. No increased work of breathing. Symmetrical chest rise. No respiratory distress. Abdomen: Soft, nontender, nondistended. Bowel sounds present. Uterus: Uterine fundus firm, nontender, palpable 1 cm below the umbilicus. Lower extremities: No lower extremity edema or swelling. No deep calf pain. Results & Data <Joshua Guerra MD - Last Filed: 11/30/24 07:00> Vital Signs (Past 12 Hours) Vital Signs Temp Pulse Resp BP Pulse Ox O2 Del Method 11/30/24 03:05 36.6 C 74 18 112/71 98 Room Air 11/29/24 23:00 36.5 C 78 16 104/61 97 Room Air 11/29/24 19:35 36.5 C 88 18 107/70 98 Room Air Supervising Physician <Milli Evans MD - Last Filed: 11/30/24 07:06> Co-Signing Physician Notes Resident Physician Supervision Note: I interviewed and examined the patient. Discussed with Dr. Guerra and agree with findings and plan as documented in the note. Any exceptions or clarifications are listed here: [ ] Documented By: Milli Evans MD, FACOG Resident Activity Tracking <Joshua Guerra MD - Last Filed: 11/30/24 07:00> Resident Involvement: Resident Care Provided Care Provided: Adult Hospital Medicine
[2024-11-30] MEDS: PRENATAL VITAMIN 1 TAB PO SCH (07:23)
[2024-11-30 07:49] LABS: Hematocrit (blood only) 26.6 % (37.0-47.0); Mean Corpuscular Hemoglobin 31.4 pg (25.0-34.0); Mean Corpuscular Hgb Conc 33.8 g/dL (32.0-36.0); Mean Corpuscular Volume 92.7 fL (80.0-100.0); Mean Platelet Volume 10.7 fL (9.4-12.4); Platelet Count 197 K/uL (130-400); RDW Coefficient of Variation 12.4 % (11.5-14.5); RDW Standard Deviation 41.3 fL (36.4-46.3); Red Blood Count 2.87 M/uL (4.20-5.40); White Blood Count 13.08 K/ul (4.8-10.8)
[2024-11-30 08:19] VITALS: BP 95/60; PULSE 76
[2024-11-30] MEDS: DIPHTHER/TETAN/PERTUS Vaccine (Tdap, Adol/Adult) 0.5mL IM ONE (13:04)
[2024-11-30] MEDS ORDERED: bisacodyL 5 MG TABEC PO SCH (20:00)
== END 2024-11-30 13:47 | disposition home or self-care (01) | DRG 807 ==
LOC: OPB 21:06 → 4S1 21:07 → 4E2 11-29 11:44